=== PATIENT | female | born 1970 | race Caucasian/White ===

== ENCOUNTER 2016-11-27 05:20 | Observation (INO) ==
[2016-11-20 09:48] LABS: HEMATOCRIT 45.8 % (37.0-47.0); HEMOGLOBIN 16.1 g/dL (12.0-16.0); MCH 31.8 PG (27-31); MCHC 35.2 g/dL (33-37); MCV 90.3 FL (81-99); MPV 10.8 FL (7.4-10.4); RBC 5.07 XMIL (4.2-5.4)
[2016-11-20 09:50] LABS: AGAP 12; ALBUMIN 4.6 g/dL (3.5-5.0); ALKALINE PHOSPHATASE 99 U/L (32-104); BUN 12 mg/dL (8-22); CALCIUM 9.9 mg/dL (8.8-10.2); CHLORIDE 96 mmol/L (98-107); COSMO 275; GOT 19 U/L (10-30); GPT 24 U/L (10-36); POTASSIUM 3.9 mmol/L (3.5-5.1); SODIUM 138 mmol/L (136-145); TCO2 30 mmol/L (25-35); TOTAL BILIRUBIN 0.52 mg/dL (0.20-1.00); TOTAL PROTEIN 8.2 g/dL (6.3-8.3)
--- NOTE | 2016-11-20 11:50 | EKG Report ---
Test Performed on : 11/20/2016 08:48:46 AM Test Reason : pat Blood Pressure : / mmHG Vent. Rate : 073 BPM Atrial Rate : 073 BPM P-R Int : 146 ms QRS Dur : 084 ms QT Int : 374 ms P-R-T Axes : 065 025 063 degrees QTc Int : 412 ms Normal sinus rhythm. Normal ECG No previous ECGs available Confirmed by Tatyana CAMEJO, Harvinder Marshall ([id number]) on 11/21/2016 11:55:06 AM
[2016-11-21 10:20] LABS: INR 0.99; PROTIME 10.4 Seconds (9.2-11.7)
[2016-11-27] MEDS ORDERED: PEPCID ONE (06:03)
[2016-11-27] MEDS ORDERED: CLINDAMYCIN 900 MG/NS 900 MG/50 ML IVPB ONE (06:04)
[2016-11-27] MEDS ORDERED: TRANSDERM-SCOP ONE (06:04)
[2016-11-27] MEDS ORDERED: LR 1,000 ML ONE ×2 (06:04→13:05)
[2016-11-27] MEDS ORDERED: REGLAN ONE (06:04)
[2016-11-27] MEDS ORDERED: NAROPIN 0.5% ONE (06:12)
[2016-11-27] MEDS ORDERED: XYLOCAINE 1% ONE (06:12)
[2016-11-27] MEDS ORDERED: CLINDAMYCIN ONE (06:12)
[2016-11-27] MEDS ORDERED: BSS OPHTH SOLN ONE (06:12)
[2016-11-27] MEDS ORDERED: VALIUM ONE (06:21)
[2016-11-27] MEDS ORDERED: DIPRIVAN 1% ONE (06:41)
[2016-11-27] MEDS ORDERED: FENTANYL ONE (06:42)
[2016-11-27] MEDS ORDERED: XYLOCAINE-MPF 2% ONE (06:49)
[2016-11-27] MEDS ORDERED: NORCURON ONE (06:52)
[2016-11-27] MEDS ORDERED: SODIUM CHLORIDE 0.9% 10 ML ONE (06:52)
[2016-11-27] MEDS ORDERED: QUELICIN (DOSE) ONE (06:52)
[2016-11-27] MEDS ORDERED: BACTROBAN OINTMENT ONE (07:10)
[2016-11-27] MEDS ORDERED: LUBRIFRESH PM OPH OINTMENT ONE (07:24)
[2016-11-27] MEDS ORDERED: XYLOCAINE 2%/EPI 1:100,000 ONE (08:14)
[2016-11-27] MEDS ORDERED: ROBINUL ONE (08:21)
[2016-11-27] MEDS ORDERED: PRINZIDE 10/12.5MG PO ONE (08:30)
[2016-11-27] MEDS ORDERED: ZOFRAN ONE (09:11)
[2016-11-27] MEDS ORDERED: DECADRON ONE (09:11)
[2016-11-27] MEDS ORDERED: NEO-SYNEPHRINE ONE ×2 (09:17→09:21)
[2016-11-27] MEDS ORDERED: PHENERGAN ONE (11:55)
[2016-11-27] MEDS ORDERED: LABETALOL IV ONE ×2 (12:00→14:30)
[2016-11-27] MEDS ORDERED: MORPHINE ONE (12:08)
[2016-11-27 12:18] LABS: ALBUMIN 3.9 g/dL (3.5-5.0); CALCIUM 8.9 mg/dL (8.8-10.2)
[2016-11-27] MEDS ORDERED: APRESOLINE ONE (12:45)
[2016-11-27] MEDS ORDERED: SODIUM CHLORIDE 0.9% INJ PRN (13:29)
[2016-11-27] MEDS ORDERED: PHENERGAN IV PRN (13:29)
--- NOTE | 2016-11-27 14:05 | OPERATIVE NOTE ---
PROCEDURE DATE: 11/27/2016 PREOPERATIVE DIAGNOSIS: Right thyroid mass. POSTOPERATIVE DIAGNOSIS: Papillary thyroid carcinoma. PROCEDURE: 1. Total thyroidectomy. 2. Complex wound closure neck, 8.5 cm. COMPLICATIONS: No complications. ANESTHESIA: General with endotracheal intubation. DESCRIPTION OF PROCEDURE: The patient was identified, consented, brought to the operating room, placed in supine position where general anesthesia was induced with endotracheal intubation. The neck was prepped and draped in the usual sterile fashion. A curvilinear horizontal incision was planned and marked with symmetry in mind. Lidocaine with epinephrine was injected into the skin incision site. The incision was created after the patient was prepped and draped in the sterile fashion. Midline dissection was performed to the strap muscles after subplatysmal flaps were elevated superior and inferior. Gelpi's were used for retraction. The fascia was dissected free of the right thyroid using combination of bipolar and LigaSure and metal clips. The vascular structures were dissected free and clamped and the transected cauterized where necessary from superior mid and inferior pole of the thyroid. The thyroid was then delivered free from meticulously dissected recurrent laryngeal nerve, which was stimulated and noted to be in effect postoperatively and grossly intact. The thyroid lobe from the right was delivered and sent for frozen section analysis. Dr. Cardona stated this was papillary thyroid carcinoma. Therefore, the left thyroid lobe was delivered in a similar fashion as described above. Meticulous attention was paid to parathyroid gland sparing technique in the superior and inferior poles of the thyroids bilaterally. Parathyroid hormone STAT level in the recovery room was in the 40s, indicating functioning parathyroid glands. The wound was closed with 4-0 Vicryl simple interrupted stitches, closing the strap muscles over a flat drain left in the midline over the trachea. The wound was irrigated first with clindamycin saline solution and assured hemostasis was noted meticulously with bipolar electrocautery. Both recurrent laryngeal nerves were noted to be grossly intact at the end of the case. The subcutaneous simple interrupted 4-0 deep and intermediate subcutaneous simple interrupted stitches were performed and 4-0 subcuticular Prolene stitch was used for subcuticular closure. She tolerated the procedure well. Mild pressure dressing was applied. She was allowed to recover from anesthesia, transferred to the recovery room in stable condition. cc: Mitchell Oneal MD
[2016-11-27] MEDS ORDERED: TYLENOL PO PRN (14:36)
[2016-11-27] MEDS: LR 1,000 ML IV SCH (15:08)
[2016-11-27] MEDS: HUMALOG SUBQ SCH ×2 (15:46→20:39)
[2016-11-27] MEDS: CLINDAMYCIN 600 MG/NS 600 MG/50 ML IVPB IV SCH ×2 (15:46→23:16)
[2016-11-27] MEDS: NORCO-10 PO PRN ×2 (17:41→22:31)
--- NOTE | 2016-11-27 19:03 | CONSULTATION ---
DATE OF CONSULTATION: 11/27/2016 PCP: Dr. Rajiv Patel REASON FOR CONSULTATION: Medical management. HISTORY OF PRESENT ILLNESS: Ms. Dykes is a 46-year-old, female who carries a past medical history of arthritis, COPD, 1 pack per day smoker, diabetes mellitus type 2 on metformin, hypertension, mitral valve prolapse, obstructive sleep apnea who wears a CPAP at night, hyperlipidemia. She was found to have a thyroid mass by her PCP, Dr. Patel and underwent a thyroidectomy with Dr. Mitchell Oneal today and was found to have papillary thyroid carcinoma. She is currently pain free and hemodynamically stable resting in the ICU status post her thyroidectomy. PAST MEDICAL HISTORY: 1. Arthritis. 2. COPD. 3. Diabetes mellitus type 2 on metformin. 4. Hypertension. 5. Mitral valve prolapse. 6. Obstructive sleep apnea. Patient wears a CPAP most nights. 7. Hyperlipidemia. 8. Tobacco abuse. 9. Thyroid mass status post thyroidectomy for papillary thyroid carcinoma. PAST SURGICAL HISTORY: 1. Hysterectomy. 2. Tonsillectomy and adenoidectomy. 3. Cervical or uterine cancer where she had some type of laser removal done. She could not remember the exact type. SOCIAL HISTORY: The patient works at [employer] in [place]. She is a smoker of 1 pack per day. She will need to be educated on smoking cessation. The patient was falling asleep and had to be woken up multiple times during the interview. She does use occasional alcohol. FAMILY HISTORY: Father with MDS. Mother with MT, CABG, diabetes and TIAs. ALLERGIES: No known drug allergies. HOME MEDICATIONS: 1. Ventolin inhaler 18 g 2 puffs inhaled b.i.d. 2. Lipitor 40 mg p.o. daily. 3. Advair Diskus 550 one inhalation b.i.d. 4. Glucophage XR 2 mg p.o. b.i.d. 5. Phenergan 25 mg p.o. q.6 hours p.r.n. 6. Spiriva 2 puffs inhaled RT daily. 7. Lexapro 20 mg p.o. daily. 8. Lisinopril/hydrochlorothiazide 20-25 mg tab 1 each daily. REVIEW OF SYSTEMS: Patient denies any chest pain, shortness of breath, nausea, vomiting, diarrhea, dysuria or neck pain. No palpitations. No cough, fever or chills. She just reports being sleepy from surgery. PHYSICAL EXAMINATION: Vital Signs: Temperature 97.8 degrees, heart rate 73, respirations 22, blood pressure is 137/79, O2 is 95% on 2 L nasal cannula. General: Ms. Dykes is a 46-year- old, female who is sitting up in the bed drowsy status post thyroidectomy, in no acute distress. HEENT: Head atraumatic, normocephalic. Pupils are equal, round, and reactive. Neck: She does have a JODI drain that is draining bright red blood. She does have a dressing covering the entirety of her neck. Cardiovascular: S1, S2 appreciated. Regular rate and rhythm. No murmurs, gallops, rubs noted. Respiratory: Lung sounds relatively clear. No rales, wheezes or rhonchi. Abdomen: Soft, nontender, nondistended. Positive bowel sounds in 4 quadrants. Extremities: Negative for edema. Bilateral pedal pulses are palpable. Skin: Warm, dry, and intact. Neurologic: No focal deficits noted. The patient is drowsy after surgery, east to awaken. When awake, she is alert and oriented x4. Follows all commands. Moves all extremities. LABORATORY DATA: No recent laboratory data. No recent diagnostic data. ASSESSMENT AND PLAN: 1. Papillary thyroid carcinoma status post thyroidectomy by Dr. Oneal. We will follow his recommendations. Dr. Victoria has also been consulted. She has been placed on a clear liquid diet. 2. Chronic obstructive pulmonary disease without exacerbation. We will do p.r.n. DuoNeb for wheezing, supplemental O2 p.r.n. 3. Diabetes mellitus type 2. We will place her on pattern sugars with sliding scale insulin. 4. Hypertension. We will continue her home lisinopril/ hydrochlorothiazide. 5. Obstructive sleep apnea. Aware. 6. Tobacco abuse. The patient will need to be educated on smoking cessation. 7. Hyperlipidemia. We will continue her home statin tomorrow. 8. Mitral valve prolapse. Aware. 9. Further recommendations pending physician evaluation. Dictated by HAL Baker for Dagoberto Ojeda MD cc: MD Rajiv Aguilera MD [facility]
[2016-11-27 20:40] LABS: INR 1.02; PROTIME 10.7 Seconds (9.2-11.7)
[2016-11-27 20:58] LABS: ALBUMIN 3.9 g/dL (3.5-5.0); CALCIUM 8.8 mg/dL (8.8-10.2)
[2016-11-27] MEDS: DUONEB (A & A) INH PRN (23:28)
[2016-11-28] MEDS: LR 1,000 ML IV SCH (01:57)
[2016-11-28 02:53] LABS: URINE CULTURE NEEDED? NO; URINE MICRO REVIEW NEEDED? NO; URINE SOURCE CATH
[2016-11-28 02:56] LABS: BILIRUBIN URINE NEGATIVE (NEGATIVE); BLOOD URINE TRACE (NEGATIVE); COLOR YELLOW; GLUCOSE URINE 70 mg/dL (NEGATIVE); LEUKOCYTES URINE NEGATIVE (NEGATIVE); NITRITE URINE NEGATIVE (NEGATIVE); PROTEIN URINE NEGATIVE (NEGATIVE); SP GRAVITY URINE 1.015; TURBIDITY URINE CLEAR (CLEAR); UROBILINOGEN URINE NORMAL (NORMAL)
[2016-11-28 02:57] LABS: UR EPITHELIAL CELLS <10 /HPF (<10); URINE BACTERIA NEGATIVE /HPF; URINE RBC <10 /HPF (<10); URINE WBC <10 /HPF (<10)
[2016-11-28 04:13] LABS: MANUAL DIFF NEEDED? NO
[2016-11-28 04:18] LABS: BASO% 0.1 % (0.0-0.8); HEMATOCRIT 38.9 % (37.0-47.0); HEMOGLOBIN 13.4 g/dL (12.0-16.0); IMM GRAN# 0.04 X1000 (0.0-0.04); IMM GRAN% 0.2 % (0.0-0.5); LYMPH% 14.2 % (20.5-51.1); MCH 31.4 PG (27-31); MCHC 34.4 g/dL (33-37); MCV 91.1 FL (81-99); MONO# 0.91 X1000 (0.11-0.59); MONO% 5.2 % (1.7-9.3); MPV 10.4 FL (7.4-10.4); NEUT% 80.3 % (42.2-75.2); PLT 250 X1000 (130-400); RBC 4.27 XMIL (4.2-5.4)
[2016-11-28] MEDS: NORCO-10 PO PRN ×2 (04:23→14:47)
[2016-11-28 04:48] LABS: AGAP 10; BUN 11 mg/dL (8-22); CALCIUM 8.8 mg/dL (8.8-10.2); CHLORIDE 88 mmol/L (98-107); COSMO 256; POTASSIUM 4.3 mmol/L (3.5-5.1); SODIUM 127 mmol/L (136-145); TCO2 29 mmol/L (25-35)
[2016-11-28] MEDS: HUMALOG SUBQ SCH ×2 (06:22→10:59)
[2016-11-28] MEDS ORDERED: PRILOSEC PO SCH (09:00)
[2016-11-28] MEDS ORDERED: PRINIVIL PO SCH (09:00)
[2016-11-28] MEDS ORDERED: PRINZIDE 10/12.5MG PO SCH (09:00)
[2016-11-28] MEDS ORDERED: LEXAPRO PO SCH (09:00)
[2016-11-28] MEDS: CLINDAMYCIN 600 MG/NS 600 MG/50 ML IVPB IV SCH ×2 (09:41→14:47)
[2016-11-28 13:01] LABS: ALBUMIN 3.7 g/dL (3.5-5.0); CALCIUM 8.8 mg/dL (8.8-10.2)
--- NOTE | 2016-11-28 13:03 | PROGRESS NOTE ---
DATE: 11/28/2016 SUBJECTIVE: This patient states that she is feeling better. She is complaining of neck pain at the level of the surgical wound but she is tolerating p.o. She does not have any problem breathing. She is talking without any abnormality. She does have a sodium level of 127. I checked back and she has a mild hyponatremia also in 2013. I talked to the patient about it and she told me that she has been having issues with her blood sodium. She was told by her primary care doctor that she has been losing sodium through her urine. She is on lisinopril/ hydrochlorothiazide, and hydrochlorothiazide can cause hyponatremia. So, I will stop it and I will continue with lisinopril. I have placed also this patient on levothyroxine but I am not quite sure if Hematology-Oncology and/or Dr. Oneal wants to start this medication, and I have notified the Hematology-Oncology nurse practitioner about this in case of starting this treatment, it will be tomorrow. OBJECTIVE: Vital Signs: Temperature 97.4, pulse 59, respiratory rate 16, blood pressure 167/87, oxygen saturation 96 on 2 L of nasal cannula. HEENT: Head normocephalic. No trauma. PERRLA. Neck: Supple. She has a wound and a drain coming out from her anterior portion of her neck with some serosanguineous discharged. No signs of infection. Chest: Clear to auscultation. No wheezing. No rales. Abdomen: Soft, nontender, nondistended. No hepatosplenomegaly. Extremities: No edema. No clubbing. No cyanosis. Neurological: The patient is alert and oriented x3. No focal neurological deficits. LABORATORY: WBC 17.5, hemoglobin 13.4, hematocrit 38.9, platelet 250,000. Sodium 127, potassium 4.3, chloride 88, bicarbonate 29, BUN 11, creatinine 0.7, glucose 117, calcium 8.8. Negative urinalysis. ASSESSMENT AND PLAN: 1. Papillary thyroid carcinoma status post total thyroidectomy by Dr. Oneal. Hematology-Oncology is on board. I will hold for today the treatment with the levothyroxine. I am not quite sure if we need to start this treatment at this moment. 2. Chronic obstructive pulmonary disease without exacerbation. Continue with p.r.n. DuoNeb for wheezing. Continue with oxygen. 3. Type 2 diabetes. Continue with sliding scale insulin and pattern blood sugar. 4. Hyponatremia. Apparently this patient has been having hyponatremia before, I have stopped her hydrochlorothiazide that can potentially be the cause of her hyponatremia. 5. Hypertension. Continue with lisinopril. 6. Obstructive sleep apnea. Aware. 7. Tobacco abuse. This patient has been highly advised against tobacco use. I will continue with daily cessation education. 8. Hyperlipidemia. Continue with home medications. 9. Mitral valve prolapse, aware. 10. Leukocytosis. I do not think this is related to any kind of infection. Likely this is secondary to the stress of the surgery. We will monitor. She is on antibiotics anyway. cc: Dagoberto Ojeda MD
[2016-11-28] MEDS: DUONEB (A & A) INH PRN (15:51)
[2016-11-28 16:10] VITALS: BP 142/95
--- NOTE | 2016-11-28 17:22 | PROGRESS NOTE ---
DATE: 11/28/2016 ADDENDUM: The patient has been reevaluated again by me. She is doing fine. She is tolerating p.o. No shortness of breath. No nausea, no vomiting, no diarrhea, no constipation. She has been evaluated by ENT Department and they have decided to discharge this patient. I have communicated with Dr. Westbrook, hematology oncologist, and he has recommended to not start treatment with the levothyroxine. She will have an appointment with Dr. Victoria next week, hopefully, next Thursday, and she will be probably scheduled for iodine ablation, looking for residual thyroid tissue. At this moment, this patient is doing better. She has no complaint. This is why we were planning to discharge this patient, with the necessary followup by Dr. Oneal and Hematology/Oncology next week. cc: Dagoberto Ojeda MD
[2016-11-29] MEDS ORDERED: SYNTHROID PO SCH (07:00)
--- NOTE | 2016-12-02 09:25 | CONSULTATION ---
DATE OF CONSULTATION: 12/02/2016 ADMITTING PHYSICIAN: Dr. Valladares. REQUESTING PHYSICIAN: Dr. Valladares. We appreciate this consult. CHIEF COMPLAINT: Thyroid cancer. HISTORY OF PRESENT ILLNESS: Ms. Dykes is a 46-year-old, female with a history of arthritis, COPD, diabetes mellitus type 2, hypertension, mitral valve prolapse, obstructive sleep apnea, hyperlipidemia, and tobacco abuse. The patient was found to have a thyroid mass by her primary care provider, Dr. Patel. She was referred to the surgeon, Dr. Mitchell Oneal, and underwent thyroidectomy. The patient was found to have a papillary thyroid carcinoma. We are consulted currently for the same. PAST MEDICAL HISTORY: As in HPI. PAST SURGICAL HISTORY: 1. Hysterectomy. 2. Tonsillectomy. 3. Adenoidectomy. 4. Cervical ablation. FAMILY HISTORY: Significant for father with MDS. No other hematologic or oncologic problem in the patient's family. SOCIAL HISTORY: The patient smokes 1 pack of cigarettes daily. She drinks alcohol socially. She does not use illicit drugs. MEDICATIONS ON ADMISSION: 1. Ventolin inhaler. 2. Lipitor. 3. Advair Diskus. 4. Glucophage. 5. Phenergan. 6. Spiriva. 7. Lexapro. 8. Lisinopril/hydrochlorothiazide. ALLERGIES: The patient has no known drug allergies. REVIEW OF SYSTEMS: A 14 point review of systems was obtained and is negative except for as mentioned in the HPI. PHYSICAL EXAMINATION: General: Ms Dykes is a 46-year-old, female, lying supine in bed in no immediate distress. Vital Signs: Temperature is 97.8, blood pressure 127/89, heart rate 48, respirations 15, O2 saturation 100% on room air. HEENT: Normocephalic, atraumatic. Mucous membranes pink and moist. Sclerae are anicteric. Extraocular movements intact. Neck: Supple. Lungs: Clear to auscultation bilaterally. Chest expansion is equal bilaterally. CV: S1 and S2 are heard without murmur, rub, or gallop. Abdomen: Soft, nondistended, nontender. Bowel sounds positive in all quadrants. No rebound or guarding noted. Extremities: Without clubbing, cyanosis, or edema. Dermatologic: No rashes, bruises, or lesions. Neurologic: The patient is awake but slightly somnolent. She is oriented x3 and has no focal motor deficits at this time. LABORATORY DATA: Hemoglobin 13.4, hematocrit 38.9, white blood cell count 17.55, platelets 250,000. Sodium 127, potassium 4.3, chloride 88, CO2 is 29, BUN 11, creatinine 0.7, and glucose is 117. Calcium is 8.8. ASSESSMENT AND PLAN: 1. Papillary thyroid mass, status post total thyroidectomy by Dr. Oneal. Currently awaiting pathology treatment plan to follow. We will schedule followup with Dr. Victoria in clinic. 2. Chronic obstructive pulmonary disease, on oxygen as needed and DuoNeb. 3. Diabetes mellitus type 2, on sliding scale insulin, stable at this time. 4. Hypertension, stable on hydrochlorothiazide with a blood pressure of 127/89. 5. Obstructive sleep apnea, stable. 6. Tobacco abuse. We have encouraged cessation. 7. We will follow along with you and make further recommendations pending outcomes. The above reflects the history, examination, assessment, and plan of Dr. Westbrook. Dictated by HAL Parisi for Wilmer Victoria MD cc: HAL Parisi MD Omar J. Sosa-Chirinos, MD
[2016-12-03] MEDS ORDERED: SYNTHROID PO SCH (07:00)
== END 2016-11-28 17:45 | disposition home or self-care (01) ==
LOC: OR 05:20 → ICU 05:20
PROVIDERS: ADMIT Internal Medicine; ATTEND Otolaryngology Otolaryngology/Facial Plastic Surgery